=== PATIENT | male | born 1975 | race Caucasian/White ===

== ENCOUNTER 2019-07-07 13:56 | Emergency (ER) | payer OTHER ==
[~2019-07-07] VITALS: Ht 177.8 cm; Wt 95.3 kg
[2019-07-07] MEDS ORDERED: WELLBUTRIN SR100 MG PO (14:34)
[2019-07-07] MEDS ORDERED: XANAX0.25 MG PO (14:36)
[2019-07-07] MEDS ORDERED: ADDERALL 30 MG30 MG PO (14:36)
[2019-07-07] MEDS ORDERED: PROTONIX40 M1 PO (14:37)
[2019-07-07] MEDS ORDERED: ULTRACET PO (15:37)
== END 2019-07-07 18:16 | disposition home or self-care (01) ==
LOC: ER 13:56
DX: S90.32XA Contusion of left foot, initial encounter (principal); W18.39XA Other fall on same level, initial encounter; Y93.89 Activity, other specified; Y92.89 Other specified places as the place of occurrence of the external cause; Y99.8 Other external cause status